=== PATIENT | female | born 1930 | race Hispanic/Latino ===

== ENCOUNTER → 2018-01-17 | Outpatient (CLI) | payer MEDICARE ==
[~2018-01-17] VITALS: Ht 152.4 cm; Wt 75.7 kg
[~2018-01-17] MED LIST: REGADENOSON 0.4 MG/5 ML PF SYG IVP SCH
== END | disposition home or self-care (01) ==
LOC: SHCH 09:13
PROVIDERS: ATTEND Internal Medicine Cardiovascular Disease
DX: I25.10 Atherosclerotic heart disease of native coronary artery without angina pectoris (principal); R06.00 Dyspnea, unspecified
CPT/HCPCS: 78452; 93017; 96374; A9500 ×2; J2785

== ENCOUNTER → 2018-01-26 | Outpatient (CLI) | payer MEDICARE | END | disposition home or self-care (01) | LOC: RAH 13:18 | PROVIDERS: ATTEND Internal Medicine Cardiovascular Disease | DX: M51.34 Other intervertebral disc degeneration, thoracic region (principal); I25.10 Atherosclerotic heart disease of native coronary artery without angina pectoris; I51.7 Cardiomegaly | CPT/HCPCS: 71250 ==